=== PATIENT | female | born 1955 | race Caucasian/White ===

== ENCOUNTER → 2019-04-24 | Outpatient (CLI) | payer OTHER ==
[2019-04-24 16:26] LABS: BASOPHILS ABSOLUTE AUTO 0.04 K/mm3 (0.00-0.23); BASOPHILS PERCENT AUTO 1 % (0-2); EOSINOPHILS ABSOLUTE AUTO 0.71 K/mm3 (0.00-0.68); EOSINOPHILS PERCENT AUTO 12 % (0-6); Hematocrit 39.3 % (33.0-51.0); Hemoglobin 12.7 g/dL (11.5-16.0); IMMATURE GRAN ABSOLUTE AUTO 0.01 K/mm3 (0.00-0.10); IMMATURE GRAN PERCENT AUTO 0 % (0-1); LYMPHOCYTES ABSOLUTE AUTO 1.91 K/mm3 (0.84-5.20); LYMPHOCYTES PERCENT AUTO 31 % (21-46); MONOCYTES ABSOLUTE AUTO 0.51 K/mm3 (0.16-1.47); MONOCYTES PERCENT AUTO 8 % (4-13); Mean Corpuscular HGB 29.8 pg (26.0-34.0); Mean Corpuscular HGB Conc 32.3 g/dL (31.5-36.5); Mean Corpuscular Volume 92 fL (80-100); Mean Platelet Volume 9.4 fL (9.1-12.4); NEUTROPHILS ABSOLUTE AUTO 2.98 K/mm3 (1.96-9.15); NEUTROPHILS PERCENT AUTO 48 % (41-73); Platelet Count 249 K/mm3 (150-400); RDW Coefficient Variation 13.7 % (11.7-14.2); RDW Standard Deviation 46.4 fL (35.1-46.3); Red Blood Cell Count 4.26 M/mm3 (3.80-5.20); White Blood Cell Count 6.16 K/mm3 (4.00-11.30)
[2019-04-24 16:43] LABS: Alanine Aminotransfer (ALT/SGP 19 U/L (12-78); Albumin, Blood 3.9 g/dL (3.4-5.0); Alk Phos 85 U/L (40-126); Anion Gap 9 mmol/L (6-16); Aspartate Aminotrans (AST/SGOT 20 U/L (12-37); Bilirubin, Total 0.3 mg/dL (0.1-1.0); Blood Urea Nitrogen 22 mg/dL (8-24); Bun/Creatinine Ratio 14.6 (12.0-20.0); CO2, Blood 27 mmol/L (21-32); Calcium, Blood 8.9 mg/dL (8.5-10.1); Chloride, Blood 104 mmol/L (98-108); Creatinine, Blood 1.51 mg/dL (0.40-1.00); Globulin, Blood 3.8 g/dL (2.2-4.0); Glomerular Filtration Rate 34 (60-); Glucose, Blood 88 mg/dL (70-99); Potassium, Blood 4.2 mmol/L (3.5-5.5); Sodium, Blood 140 mmol/L (136-145); Thyroid Stimulating Hormone 1.194 uIU/mL (0.360-4.800); Total Protein, Blood 7.7 g/dL (6.4-8.2)
[2019-04-24 16:49] LABS: Troponin I <0.017 ng/mL (0.000-0.040)
== END | disposition home or self-care (01) ==
LOC: LAB SHORT 16:21 → LAB EV 16:21
PROVIDERS: Physician Assistant
DX: E03.9 Hypothyroidism, unspecified (principal); R07.89 Other chest pain
CPT/HCPCS: 80053; 84443; 84484; 85025

== ENCOUNTER → 2019-09-24 | Outpatient (CLI) | payer OTHER ==
[2019-09-24 17:01] LABS: Albumin, Blood 3.6 g/dL (3.4-5.0); Anion Gap 7 mmol/L (6-16); Blood Urea Nitrogen 19 mg/dL (8-24); Bun/Creatinine Ratio 14.6 (12.0-20.0); CO2, Blood 25 mmol/L (21-32); Calcium, Blood 9.2 mg/dL (8.5-10.1); Chloride, Blood 107 mmol/L (98-108); Glomerular Filtration Rate 44 (60-); Glucose, Blood 86 mg/dL (70-99); Phosphorus, Blood 3.6 mg/dL (2.5-4.9); Potassium, Blood 3.8 mmol/L (3.5-5.5); Sodium, Blood 139 mmol/L (136-145)
== END | disposition home or self-care (01) ==
LOC: LAB 14:06 → LAB SHORT 14:06
PROVIDERS: Internal Medicine Nephrology
DX: I12.9 Hypertensive chronic kidney disease with stage 1 through stage 4 chronic kidney disease, or unspecified chronic kidney disease (principal); N18.3 Chronic kidney disease, stage 3 (moderate)
CPT/HCPCS: 80069

== ENCOUNTER → 2019-09-26 | Outpatient (CLI) | payer OTHER | END | disposition home or self-care (01) | LOC: LAB 15:55 → LAB SHORT 15:55 | DX: N18.3 Chronic kidney disease, stage 3 (moderate) (principal); D63.1 Anemia in chronic kidney disease | CPT/HCPCS: 85018 ==

== ENCOUNTER 2019-10-25 16:16 | Emergency (ER) | payer OTHER ==
[~2019-10-25] VITALS: Ht 152.4 cm; Wt 56.7 kg
[2019-10-25 16:41] LABS: Source, Urine Clean Catch
[2019-10-25 16:45] LABS: Bilirubin, Urine Neg (Neg); Blood, Urine Neg (Neg); Glucose Qualitative, Urine Neg (Neg); Ketones, Urine Neg (Neg); Leukocyte Esterase, Urine Neg (Neg); Nitrite, Urine Neg (Neg); Protein, Urine Neg (Neg); Specific Gravity, Urine 1.005 (1.003-1.022); Urobilinogen, Urine NORM (Normal)
[2019-10-25 17:03] LABS: Appearance, Urine Clear (Clear); Color, Urine Pale Yellow (P-Yellow)
[2019-10-25 17:16] LABS: BASOPHILS ABSOLUTE AUTO 0.03 K/mm3 (0.00-0.23); BASOPHILS PERCENT AUTO 1 % (0-2); EOSINOPHILS ABSOLUTE AUTO 0.68 K/mm3 (0.00-0.68); EOSINOPHILS PERCENT AUTO 11 % (0-6); Hematocrit 39.7 % (33.0-51.0); Hemoglobin 12.8 g/dL (11.5-16.0); IMMATURE GRAN ABSOLUTE AUTO 0.02 K/mm3 (0.00-0.10); IMMATURE GRAN PERCENT AUTO 0 % (0-1); LYMPHOCYTES ABSOLUTE AUTO 1.45 K/mm3 (0.84-5.20); LYMPHOCYTES PERCENT AUTO 24 % (21-46); MONOCYTES ABSOLUTE AUTO 0.45 K/mm3 (0.16-1.47); MONOCYTES PERCENT AUTO 8 % (4-13); Mean Corpuscular HGB 29.8 pg (26.0-34.0); Mean Corpuscular HGB Conc 32.2 g/dL (31.5-36.5); Mean Corpuscular Volume 92 fL (80-100); Mean Platelet Volume 10.3 fL (9.1-12.4); NEUTROPHILS ABSOLUTE AUTO 3.37 K/mm3 (1.96-9.15); NEUTROPHILS PERCENT AUTO 56 % (41-73); Platelet Count 243 K/mm3 (150-400); RDW Coefficient Variation 13.1 % (11.7-14.2); RDW Standard Deviation 44.4 fL (35.1-46.3)
[2019-10-25 17:39] LABS: Alanine Aminotransfer (ALT/SGP 22 U/L (12-78); Albumin, Blood 3.9 g/dL (3.4-5.0); Albumin/Globulin Ratio 0.9 (0.8-1.8); Alk Phos 88 U/L (50-136); Anion Gap 5 mmol/L (6-16); Aspartate Aminotrans (AST/SGOT 19 U/L (12-37); Bilirubin, Total 0.4 mg/dL (0.1-1.0); Blood Urea Nitrogen 17 mg/dL (8-24); Bun/Creatinine Ratio 11.8 (12.0-20.0); CO2, Blood 26 mmol/L (21-32); Calcium, Blood 9.3 mg/dL (8.5-10.1); Chloride, Blood 105 mmol/L (98-108); Creatinine, Blood 1.44 mg/dL (0.40-1.00); Globulin, Blood 4.3 g/dL (2.2-4.0); Glomerular Filtration Rate 39 (60-); Glucose, Blood 93 mg/dL (70-99); Sodium, Blood 136 mmol/L (136-145); Total Protein, Blood 8.2 g/dL (6.4-8.2); Troponin I <0.015 ng/mL (0.000-0.040)
[2019-10-25] MEDS ORDERED: LEVSOD25 PO (22:13)
[2019-10-25] MEDS ORDERED: QUET25 (22:14)
[2019-10-25] MEDS ORDERED: COMBIVENT RESPIM4 G1 INH (22:14)
== END 2019-10-25 22:16 | disposition home or self-care (01) ==
LOC: ER 16:16
PROVIDERS: Physician Assistant
DX: R07.9 Chest pain, unspecified (principal); M79.7 Fibromyalgia; M81.0 Age-related osteoporosis without current pathological fracture; Z88.5 Allergy status to narcotic agent; Z88.8 Allergy status to other drugs, medicaments and biological substances; Z79.899 Other long term (current) drug therapy; Z87.891 Personal history of nicotine dependence
CPT/HCPCS: 36415; 80053; 81003; 84484; 85025; 93005; 93010; 99283-25

== ENCOUNTER → 2019-11-16 | Outpatient (CLI) | payer OTHER ==
[~2019-11-16] MED LIST: COMBIVENT RESPIM4 G1 INH; LEVSOD25 PO; QUET25
== END | disposition home or self-care (01) ==
LOC: LAB SHORT 18:05 → LAB EV 18:05
DX: J20.9 Acute bronchitis, unspecified (principal)
CPT/HCPCS: U0003

== ENCOUNTER → 2019-12-31 | Outpatient (CLI) | payer OTHER ==
[2020-01-02 14:10] LABS: HPV 16 Negative (Negative); HPV 18 Negative (Negative); HPV OTHER HR TYPES Negative (Negative)
== END | disposition home or self-care (01) ==
LOC: LAB 10:42 → LAB SHORT 10:42
PROVIDERS: Obstetrics & Gynecology
DX: Z01.419 Encounter for gynecological examination (general) (routine) without abnormal findings (principal)
CPT/HCPCS: 87624; G0123

== ENCOUNTER → 2020-04-07 | Outpatient (CLI) | payer OTHER | END | disposition home or self-care (01) | LOC: LAB SHORT 14:03 → LAB 14:03 → LAB FUT 04-02 17:30 | DX: N18.31 Chronic kidney disease, stage 3a (principal); D63.1 Anemia in chronic kidney disease; N25.81 Secondary hyperparathyroidism of renal origin; E55.9 Vitamin D deficiency, unspecified; E78.00 Pure hypercholesterolemia, unspecified; R76.9 Abnormal immunological finding in serum, unspecified; R94.5 Abnormal results of liver function studies; R94.6 Abnormal results of thyroid function studies | CPT/HCPCS: 87493 ==

== ENCOUNTER → 2020-05-29 | Outpatient (CLI) | payer OTHER ==
[~2020-05-29] MED LIST changes: +ALBU90OI INH; +CLIMARA1 EACH TOP; +DOCU100 PO; +GABA300 PO; +MELA3 PO; +PANTOPRAZOLE SO40 M2 PO; +QUETIAPINE FUMA25 MG PO; +STIOLTO RESPIMAT4 G1 INH; +TAMS.4ER PO
[2020-05-29 14:14] LABS: Bun/Creatinine Ratio 10.2 (12.0-20.0); Calcium, Blood 9.1 mg/dL (8.5-10.1); Creatinine, Blood 1.37 mg/dL (0.40-1.00)
[2020-05-29 14:22] LABS: Thyroid Stimulating Hormone 2.04 uIU/mL (0.360-4.800)
== END | disposition home or self-care (01) ==
LOC: LAB 09:50 → LAB SHORT 09:50
PROVIDERS: Nurse Practitioner Family
DX: K59.00 Constipation, unspecified (principal)
CPT/HCPCS: 80048; 84443

== ENCOUNTER 2020-08-05 19:34 | Emergency (ER) | payer OTHER ==
[~2020-08-05] VITALS: Ht 152.4 cm; Wt 54.0 kg
[~2020-08-05 19:34] MED LIST changes: -ALBU90OI INH; -CLIMARA1 EACH TOP; -DOCU100 PO; -GABA300 PO; -MELA3 PO; -PANTOPRAZOLE SO40 M2 PO; -QUETIAPINE FUMA25 MG PO; -STIOLTO RESPIMAT4 G1 INH; -TAMS.4ER PO
[2020-08-05] MEDS ORDERED: QUETIAPINE FUMA25 MG PO (19:45)
[2020-08-05] MEDS ORDERED: CLIMARA1 EACH TOP (19:46)
[2020-08-05] MEDS ORDERED: PANTOPRAZOLE SO40 M2 PO (19:46)
[2020-08-05 20:19] LABS: Source, Urine Clean Catch
[2020-08-05 20:20] LABS: BASOPHILS ABSOLUTE AUTO 0.03 K/mm3 (0.00-0.23); BASOPHILS PERCENT AUTO 1 % (0-2); EOSINOPHILS ABSOLUTE AUTO 0.82 K/mm3 (0.00-0.68); EOSINOPHILS PERCENT AUTO 12 % (0-6); Hematocrit 35.2 % (33.0-51.0); Hemoglobin 11.5 g/dL (11.5-16.0); IMMATURE GRAN ABSOLUTE AUTO 0.02 K/mm3 (0.00-0.10); IMMATURE GRAN PERCENT AUTO 0 % (0-1); LYMPHOCYTES ABSOLUTE AUTO 2.13 K/mm3 (0.84-5.20); LYMPHOCYTES PERCENT AUTO 32 % (21-46); MONOCYTES ABSOLUTE AUTO 0.46 K/mm3 (0.16-1.47); MONOCYTES PERCENT AUTO 7 % (4-13); Mean Corpuscular HGB 29.9 pg (26.0-34.0); Mean Corpuscular HGB Conc 32.7 g/dL (31.5-36.5); Mean Corpuscular Volume 91 fL (80-100); Mean Platelet Volume 10.2 fL (9.1-12.4); NEUTROPHILS ABSOLUTE AUTO 3.14 K/mm3 (1.96-9.15); NEUTROPHILS PERCENT AUTO 48 % (41-73); Platelet Count 221 K/mm3 (150-400); RDW Coefficient Variation 13.1 % (11.7-14.2); RDW Standard Deviation 43.8 fL (35.1-46.3); Red Blood Cell Count 3.85 M/mm3 (3.80-5.20)
[2020-08-05 20:23] LABS: Bilirubin, Urine Neg (Neg); Blood, Urine Neg (Neg); Glucose Qualitative, Urine Neg (Neg); Ketones, Urine Neg (Neg); Leukocyte Esterase, Urine Neg (Neg); Nitrite, Urine Neg (Neg); Protein, Urine Neg (Neg); Urobilinogen, Urine NORM (Normal)
[2020-08-05 20:30] LABS: Appearance, Urine Clear (Clear); Color, Urine Yellow (P-Yellow)
[2020-08-05 20:42] LABS: Albumin, Blood 3.6 g/dL (3.4-5.0); Albumin/Globulin Ratio 0.9 (0.8-1.8); Bilirubin, Total 0.3 mg/dL (0.1-1.0); Bun/Creatinine Ratio 11.6 (12.0-20.0); Calcium, Blood 9.3 mg/dL (8.5-10.1); Creatinine, Blood 1.29 mg/dL (0.40-1.00); Globulin, Blood 3.9 g/dL (2.2-4.0); Potassium, Blood 3.6 mmol/L (3.5-5.5); Total Protein, Blood 7.5 g/dL (6.4-8.2)
[2020-08-05 20:46] LABS: Thyroid Stimulating Hormone 0.942 uIU/mL (0.360-4.800)
[2020-08-31] MEDS ORDERED: STIOLTO RESPIMAT4 G1 INH (11:25)
[2020-08-31] MEDS ORDERED: MELA3 PO (11:26)
[2020-09-01] MEDS ORDERED: ALBU90OI INH (08:58)
[2020-09-06] MEDS ORDERED: TAMS.4ER PO (15:47)
[2020-09-06] MEDS ORDERED: DOCU100 PO (15:47)
[2020-09-06] MEDS ORDERED: GABA300 PO (15:48)
== END 2020-08-05 22:57 | disposition home or self-care (01) ==
LOC: ER 19:34
PROVIDERS: Physician Assistant
DX: R41.82 Altered mental status, unspecified (principal); Z79.899 Other long term (current) drug therapy; Z88.8 Allergy status to other drugs, medicaments and biological substances
CPT/HCPCS: 36415; 74177; 80053; 81003; 83690; 84443; 85025; 99285-25; Q9967

== ENCOUNTER 2020-09-01 08:26 | Day surgery (SDC) | payer OTHER ==
[~2020-09-01] VITALS: Ht 152.4 cm; Wt 53.5 kg
[~2020-09-01 08:26] MED LIST changes: +CLIMARA1 EACH TOP; +MELA3 PO; +PANTOPRAZOLE SO40 M2 PO; +QUETIAPINE FUMA25 MG PO; +STIOLTO RESPIMAT4 G1 INH
--- NOTE | 2020-09-01 08:54 | NUR ---
History, Chart, Medications and Allergies reviewed before start of procedure. Patient confirms NPO status and agrees with scheduled surgery. Reports taking all of her colon prep with clear, yellow output. States she has saw lots of sediment in her last BM. Patient States Post-Procedure ride home has been arranged with her caregiver, Agustina Velasco.
[2020-09-01] MEDS ORDERED: ALBU90OI INH ×2 (08:58)
--- NOTE | 2020-09-01 09:13 | NUR ---
09/01/20 0913 Ambrose Finney History, Chart, Medications and Allergies reviewed before start of procedure.MONITOR INTACT WITH CONTINUOUS PULSE OXIMETRY AND INTERMITTENT BP.3-LEAD EKG REVIEWED WITH PHYSICIAN PRIOR TO START OF PROCEDURE.O2 VIA N/C INTACT THROUGHOUT SEDATION/PROCEDURE. See Anesthesia record
--- NOTE | 2020-09-01 10:37 | NUR ---
PATIENT STATED SHE WAS UNABLE TO URINATE ON A BED COHEN. TWO STAFF ASSIST TO A BEDSIDE COMMODE, PATIENT BECAME MORE TREMULOUS IN WHOLE BODY WHILE UP ON BEDSIDE COMMODE. STATES SHE STILL HAS TO URINATE AFTER VOIDING 100 MLS. WILL BLADDER SCAN. PUT HER BACK TO BED. PATIENT ABLE TO BARE WEIGHT. BRIEF IN PLACE.
--- NOTE | 2020-09-01 10:46 | NUR ---
USED BLADDER SCANNER DUE TO COMPLAINTS OF FEELING OF FULL BLADDER. 334 MLS OF URINE ON BLADDER SCAN READ. PATIENT HAS CHRONIC PAIN ISSUES, NO MEDICATIONS USED FOR CHRONIC PAIN.
--- NOTE | 2020-09-01 12:10 | NUR ---
AMBULATED PATIENT IN UNIT WITH CANE, TWO STAFF ASSIST, PATIENT BECAME WEAK SO WE PUT HER IN A W/C. SPOKE TO DR. DOSHI ABOUT PATIENT'S INABILITY TO SAFELY GO HOME DUE TO TREMORS AND WEAKNESS. PATIENT NOT BACK TO BASELINE PER RIDE HOME. ASK FOR EXTENDED RECOVERY ON SURGICLE FLOOR, DR. DOSHI SAID HE WOULD REASSESS AFTER FINISHING NEXT PATIENT'S SCOPE. PATIENT UP ON BEDSIDE COMMODE. PROVIDED FOOD AND FLUID.
--- NOTE | 2020-09-01 15:00 | NUR ---
1230 assumed care of patient. assist up to ambulate with walker and assess leg strength and stability. pt legs occasionally buckeling under her while attemptinmg ambulation. 1300 ambulte patient with walker assist continues with leg weekness and buckeling much discussion on plan for patient as she lives alone and unsafe to send home alone. [address] Mac report given to hime of patient condition. Dr Mac states he doesnt feel admitting patient is appropriate. I stated I can't discharge her home as she can't walk even with walker without legs buckeling under her and me needing to grab her. Dr Mac stated "take patient to the ER for evaluation". After much discussion with patient, Patient agreed to go to ER. Patient has friend/ courier delivery driver with her. 1330 Assisted patient to BR with walker. no change in unsteady buckeling legs 1345 Patient taken to ER via wheel chair with Carol -friend at her side. I assisted patient in getting checked into ER
--- NOTE | 2020-09-01 16:01 | NUR ---
MARITZA TAKING CARE OF BRANDT DALEY T/O RECOVERY PHASE OF SCOPE. PT WAS VERY TREMULOUS, WEAK AND FELT LIKE SHE NEEDED TO VOID. PT SHOWING CPMPULISIVE BEHAVIOR AND COULD NOT BE LEFT ALONE. STAYED AT BEDSIDE. PT GOTTEN UP TO BSC WITH TWO STAFF ASSIST. PT UNABLE TO VOID EXCEPT 100CC CLEAR YELLOW URINE. PT CONTINUED TO BE INSISTENT THAT SHE HAD TO VOID. DID BLADDER SCANNER THAT SHOWED 334 ML OF URINE RETAINED IN BLADDER. GOT PATIENT UP TO WALK TO ASSESS STABILITY ON FEET AFTER 1.5 HOURS OF RECOVERY AND TREMORS HAD REDUCED. PT NORMALLY INDEPENDENT AT HOME WITH USING A CANE. JULIO, STEWARDESSES TEACHER VOICED HER CONCERNS ABOUT PT NOT BEING AT BASELINE MENTALLY OR PHYSICALLY. SPOKE TO DR DOSHI ABOUT CONCERNS. NO NEW ORDERS AT THIS TIME. DR DOSHI AND DR MATHEW ASSESSED PT AND DID NOT FEEL SHE NEEDED EXTENDED RECOVERY. ATTEMPTED AMBULATION AT 2 HOUS IN RECOVERY AND PT WAS STILL LOSING HER BALANCE AND WAS VERY WEAK. SPOKE TO DR DOSHI REGARDING CONCERNS. NO NEW ORDERS. PT CONTINUED TO BE UNSTABLE AND WAS TAKEN TO ER AND ADMITTED TO HOSPITAL.
== END 2020-09-01 23:20 | disposition home or self-care (01) ==
LOC: ORSCMMR 08:26 → ORD 09:15 → ORSCMMR 09:15
PROVIDERS: Internal Medicine Gastroenterology
PROC: 0DBN8ZX Excision of Sigmoid Colon, Via Natural or Artificial Opening Endoscopic, Diagnostic (ICD-10-PCS; principal; 2020-09-01 09:15)
PROC: 0DBM8ZX Excision of Descending Colon, Via Natural or Artificial Opening Endoscopic, Diagnostic (ICD-10-PCS; principal; 2020-09-01 09:15)
PROC: 0DBP8ZX Excision of Rectum, Via Natural or Artificial Opening Endoscopic, Diagnostic (ICD-10-PCS; principal; 2020-09-01 09:15)
DX: R10.84 Generalized abdominal pain (principal); K62.1 Rectal polyp; K63.5 Polyp of colon; K63.89 Other specified diseases of intestine; K57.30 Diverticulosis of large intestine without perforation or abscess without bleeding; K64.8 Other hemorrhoids; Z80.0 Family history of malignant neoplasm of digestive organs; C85.90 Non-Hodgkin lymphoma, unspecified, unspecified site; G47.33 Obstructive sleep apnea (adult) (pediatric); Z79.899 Other long term (current) drug therapy
CPT/HCPCS: 88305; J2704; J7120

== ENCOUNTER 2020-09-01 14:00 | Observation (INO) | payer OTHER ==
[~2020-09-01] VITALS: Ht 152.4 cm; Wt 53.0 kg
[~2020-09-01 14:00] MED LIST changes: +ALBU90OI INH
[2020-09-01 15:04] LABS: BASOPHILS ABSOLUTE AUTO 0.03 K/mm3 (0.00-0.23); BASOPHILS PERCENT AUTO 0 % (0-2); EOSINOPHILS ABSOLUTE AUTO 0.63 K/mm3 (0.00-0.68); EOSINOPHILS PERCENT AUTO 9 % (0-6); Hematocrit 35.3 % (33.0-51.0); Hemoglobin 11.6 g/dL (11.5-16.0); IMMATURE GRAN ABSOLUTE AUTO 0.01 K/mm3 (0.00-0.10); IMMATURE GRAN PERCENT AUTO 0 % (0-1); LYMPHOCYTES ABSOLUTE AUTO 1.32 K/mm3 (0.84-5.20); LYMPHOCYTES PERCENT AUTO 20 % (21-46); MONOCYTES PERCENT AUTO 7 % (4-13); Mean Corpuscular HGB 29.9 pg (26.0-34.0); Mean Corpuscular HGB Conc 32.9 g/dL (31.5-36.5); Mean Corpuscular Volume 91 fL (80-100); Mean Platelet Volume 9.8 fL (9.1-12.4); NEUTROPHILS ABSOLUTE AUTO 4.28 K/mm3 (1.96-9.15); NEUTROPHILS PERCENT AUTO 63 % (41-73); Platelet Count 222 K/mm3 (150-400); RDW Coefficient Variation 13.1 % (11.7-14.2); Red Blood Cell Count 3.88 M/mm3 (3.80-5.20); White Blood Cell Count 6.77 K/mm3 (4.00-11.30)
[2020-09-01 15:25] LABS: Albumin, Blood 3.6 g/dL (3.4-5.0); Albumin/Globulin Ratio 0.9 (0.8-1.8); Bilirubin, Total 0.4 mg/dL (0.1-1.0); Bun/Creatinine Ratio 7.1 (12.0-20.0); Creatinine, Blood 1.26 mg/dL (0.40-1.00); Globulin, Blood 3.9 g/dL (2.2-4.0); Potassium, Blood 3.7 mmol/L (3.5-5.5); Total Protein, Blood 7.5 g/dL (6.4-8.2)
[2020-09-01 15:33] LABS: Source, Urine Clean Catch
[2020-09-01 16:04] LABS: Appearance, Urine Clear (Clear); Bilirubin, Urine Neg (Neg); Blood, Urine Neg (Neg); Glucose Qualitative, Urine Neg (Neg); Ketones, Urine Neg (Neg); Leukocyte Esterase, Urine 1+ (Neg); Nitrite, Urine Neg (Neg); Protein, Urine Neg (Neg); Urobilinogen, Urine NORM (Normal)
[2020-09-01 16:40] LABS: Color, Urine Pale Yellow (P-Yellow)
[2020-09-01 16:41] LABS: Bacteria Rare /hpf; Red Blood Cells, Urine 0-2 /hpf (0-2); Squamous Epithelial Cells Rare /hpf (Few); White Blood Cells, Urine 0-2 /hpf (0-5)
[2020-09-01 23:00] LABS: Thyroid Stimulating Hormone 1.58 uIU/mL (0.360-4.800)
[2020-09-02 05:22] LABS: BASOPHILS ABSOLUTE AUTO 0.04 K/mm3 (0.00-0.23); BASOPHILS PERCENT AUTO 1 % (0-2); EOSINOPHILS ABSOLUTE AUTO 0.64 K/mm3 (0.00-0.68); EOSINOPHILS PERCENT AUTO 12 % (0-6); Hematocrit 31.3 % (33.0-51.0); Hemoglobin 10.1 g/dL (11.5-16.0); IMMATURE GRAN ABSOLUTE AUTO 0.02 K/mm3 (0.00-0.10); IMMATURE GRAN PERCENT AUTO 0 % (0-1); LYMPHOCYTES ABSOLUTE AUTO 1.53 K/mm3 (0.84-5.20); LYMPHOCYTES PERCENT AUTO 29 % (21-46); MONOCYTES ABSOLUTE AUTO 0.49 K/mm3 (0.16-1.47); MONOCYTES PERCENT AUTO 9 % (4-13); Mean Corpuscular HGB 29.6 pg (26.0-34.0); Mean Corpuscular HGB Conc 32.3 g/dL (31.5-36.5); Mean Corpuscular Volume 92 fL (80-100); Mean Platelet Volume 9.9 fL (9.1-12.4); NEUTROPHILS ABSOLUTE AUTO 2.62 K/mm3 (1.96-9.15); NEUTROPHILS PERCENT AUTO 49 % (41-73); Platelet Count 196 K/mm3 (150-400); RDW Standard Deviation 43.3 fL (35.1-46.3); Red Blood Cell Count 3.41 M/mm3 (3.80-5.20); White Blood Cell Count 5.34 K/mm3 (4.00-11.30)
[2020-09-02 06:02] LABS: Bun/Creatinine Ratio 5.7 (12.0-20.0); Calcium, Blood 8.5 mg/dL (8.5-10.1); Creatinine, Blood 1.41 mg/dL (0.40-1.00); Potassium, Blood 3.4 mmol/L (3.5-5.5)
--- NOTE | 2020-09-02 06:44 | NUR ---
SHIFT SUMMARY NEW ER ADMIT THIS SHIFT (0030) AMBULATED 1 ASSIST FROM GURNEY TO BED, VISIBLE TREMORS INTERMITTENTLY (NO TREMORS THIS AM), SLEPT T/O THE NIGHT, MEDICATED 1X FOR SORE THROAT, NO OTHER C/O ANY KIND, BEDRESTING AT THIS TIME, CALL LIGHT IN REACH, WILL CONT TO MONITOR UNTIL REPORT GIVEN TO DAY RN.
--- NOTE | 2020-09-02 17:25 | NUR ---
SHIFT SUMMARY PT WITH DIFFERENT DEPTS OF STAFF WORKING WITH PT THIS MORNING. WENT FOR MRI LATE MORNING. 1 PERSON ASSIST USING FWW WITH P.T. TODAY. LE STRENGTH EQUAL. CAREGIVER/FRIEND AT BEDSIDE THIS EVENING FOR A VISIT. PT ABLE TO EXPRESS HERSELF AND NEEDS CLEARLY. STATES BELTRAN IS UNCOMFORTABLE. STATES OCC SPASMS. WILL REPORT CONDITION TO ONCOMING SHIFT.
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
--- NOTE | 2020-09-03 01:08 | NUR ---
LATE ENTRY FOR 09/02 AT 2130. CALL PLACED TO HOSPITALIST, TRINITY NEUMANN DUE TO BP 90/61. PT ASYMPTOMATIC. CURRENTLY RECEIVING LR AT 75/HR. NO NEW ORDERS AT THIS TIME.
--- NOTE | 2020-09-03 04:02 | NUR ---
SHIFT SUMMARY: AAOX3. 02 97% ON RA. RESPS REG, NON-LABORED. FICTION AND NONFICTION AUTHOR/PUSHES/PULLS ALL EQUAL BILATERALLY. PT REMAINED IN BED TONIGHT. DENIES N/T. F/C PATENT AND DRAINING CLEAR STRAW COLORED URINE. MAINTENANCE FLUIDS INFUSING CONTINUOUSLY. NO ACUTE CHANGES OVERNIGHT. WCTM.
[2020-09-03 05:12] LABS: Bun/Creatinine Ratio 8.7 (12.0-20.0); Calcium, Blood 8.2 mg/dL (8.5-10.1); Creatinine, Blood 1.5 mg/dL (0.40-1.00); Potassium, Blood 3.9 mmol/L (3.5-5.5)
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
--- NOTE | 2020-09-03 18:27 | NUR ---
SHIFT SUMMARY PT UP TO BATHROOM WITH 1 PERSON ASSIST USING A FWW. DOES HAVE URINARY URGENCY AND NEEDS TO GO FREQUENTLY. POST VOID RESIDUALS DONE TWICE WITH LESS THAN 110 EACH TIME. WALKED IN HALLWAY WITH FWW WITH P.T. TO ACC DESK AND BACK. NO RESP DISTRESS NOTED. UP IN CHAIR FOR LUNCH AND DINNER. POSSIBLE DISCHARGE TO SNF. FRIEND JULIO IN TO VISIT PT THIS AFTERNOON.
--- NOTE | 2020-09-04 03:28 | NUR ---
SHIFT SUMMARY: VSS. AFEB. 02 99% ON RA. PT WEARING 02 2L VIA NC AT HS. UP W/ FWW AND SBA. GAIT WELL-PACED AND STEADY. NO MUSCLE TREMORING OBSERVED. VOIDING WELL BOTH CONTINENT AND INCONTINENT. MED X 1 FOR GENERAL PAIN. PT APPEARS TO HAVE SLEPT WELL FOR MUCH OF THE NIGHT. NO ACUTE CONCERNS AT THIS TIME.
[2020-09-04 11:04] LABS: Influenza A, PCR NEGATIVE (NEGATIVE); Influenza B, PCR NEGATIVE (NEGATIVE); Resp Syncytial Virus, PCR NEGATIVE (NEGATIVE); SARS-Cov-2 (COVID-19) PCR, MMC NEGATIVE (NEGATIVE)
--- NOTE | 2020-09-04 16:16 | NUR ---
REASSESSED SI WITH PRESENT AND IT WAS FOUND THAT THE PATIENT WAS MODERATE SI RATHER THAN HIGH. WHEN THIS RN FIRST ASSESSED PATIENT SHE WOULD NOT ANSWER QUESTIONS BECAUSE SHE "DID NOT WANT TO GET LOCKED UP." AFTER BECOMING MORE TRUSTFUL SHE WAS ABLE TO ANSWER QUESTIONS MORE HONESTLY.
[2020-09-04 16:27] LABS: Source, Urine Voided
[2020-09-04 16:40] LABS: Bilirubin, Urine Neg (Neg); Blood, Urine 5+ (Neg); Glucose Qualitative, Urine Neg (Neg); Ketones, Urine Neg (Neg); Leukocyte Esterase, Urine 3+ (Neg); Nitrite, Urine Neg (Neg); Protein, Urine Neg (Neg); Urobilinogen, Urine NORM (Normal); pH, Urine 6.5 (5.0-8.0)
[2020-09-04 16:48] LABS: Appearance, Urine Hazy (Clear); Color, Urine Pale Yellow (P-Yellow)
[2020-09-04 16:49] LABS: White Blood Cells, Urine 50-100 /hpf (0-5)
[2020-09-04 16:50] LABS: Bacteria Mod /hpf; Squamous Epithelial Cells Few /hpf (Few)
--- NOTE | 2020-09-04 18:09 | NUR ---
PT ARRIVED TO ROOM 349 FROM ROOM 355 VIA AMBULATION WITH FWW , REPORT TAKEN FROM RADHAMES BRENNAN, THE PT APPEARS TO BE BREATHING EASILY AT THIS TIME ON RA, PT IS VERY ANXIOUS AND CONCERNED ABOUT HER NEW ROOM , REASURANCE WAS GIVEN TO THE PT, THE PT REPORTED THAT SHE DIDNT MEAN TO CAUSE ANY TROUBLE THE PT WAS REASURED THAT SHE WAS NOT CAUSING TROUBLE, PT UPSET WITH THE SI PRECAUTIONS, STATED THAT HER PLAN IF SHE DID HURT HERSELF WOULD BE TAKING SOME PILLS/MEDICATION, PT WAS ORIENTED TO THE CALL SYSTEM, OVERHEAD CAMERA MONITORING IS IN PLACE, WILL CONTINUE TO MONITOR FOR CHANGES
--- NOTE | 2020-09-04 19:16 | NUR ---
SHIFT SUMMARY PT HAD A LOT OF DIFFICULTY THIS SHIFT. SHE EXPERIENCED A LOT OF PAIN AND FULLNESS IN HER BLADDER, BUT VOIDED OFTEN. BLADDER SCANNED OFTEN FOR RESIDUAL AND FOUND THE PATIENT WAS NOT RETAINING MUCH URINE. SHE ALSO BECAME VERY EMOTIONAL AND ANXIOUS THIS SHIFT. PRIOR TO POSSIBLY DISCHARGING HOME WITH HOME HEALTH THE PATIENT BROKE DOWN CRYING, EXPRESSING THAT MENTALLY AND PHYSICALLY SOMETHING WAS "WRONG". SHE ALSO BEGAN TO EXPRESS SUICIDAL THOUGHTS AT THIS TIME. DUE TO THIS BEHAVIOR, THE DIRECTOR OF SALES AND MARKETING AND NEXT OF KIN (JULIO) DECIDED THAT SHE WOULD NOT BE SAFE TO GO HOME. WHEN I TRIED TO COMPLETE THE SUICIDE ASSESSMENT THE PATIENT WAS VERY RELUCTANT TO ANSWER QUESTIONS BECAUSE SHE WAS AFRAID SHE WOULD BE "LOCKED UP". PATIENT FINALLY WAS ABLE TO FEEL SAFE ENOUGH TO ANSWER QUESTIONS FOR THE PHYSICIAN AND I AND WAS PLACED ON MODERATE SI. SHE WAS MOVED TO A ROOM WITH VIDEO MONITORING. REPORT GIVEN TO KENNETH DIAZ RN.
[2020-09-04 22:39] LABS: Source, Urine Voided
[2020-09-04 22:41] LABS: Bilirubin, Urine Neg (Neg); Blood, Urine 5+ (Neg); Glucose Qualitative, Urine Neg (Neg); Ketones, Urine Neg (Neg); Leukocyte Esterase, Urine 3+ (Neg); Nitrite, Urine Neg (Neg); Protein, Urine Neg (Neg); Specific Gravity, Urine 1.005 (1.003-1.022); Urobilinogen, Urine NORM (Normal)
--- NOTE | 2020-09-04 22:41 | NUR ---
PT STATES SHE HAS BAD BONE PAIN AND NERVE PAIN. RN OFFERED PT HEATING PAD TO WHICH SHE REFUSED. RN OFFERED TO CALL HOSPITALIST FOR SOMETHING MEDICATION TO HELP WITH PAIN AND PT STATED "I'VE TRIED THEM ALL". HOSPITALIST DR. PIZARRO MADE AWARE, TYLENOL #3 ORDERED WELL GABAPENTIN. PT IS UNHAPPY AND STATES MULTIPLE TIMES SHE WANTS TO "GET OUT OF HERE" AND "I'LL TAKE A TAXI IF I HAVE TO" PT TOLD RN SHE DOES NOT BLAME STAFF AND KNOWS THIS IS PROCEDURE. PT IS A/O X4. RN CAN HEAR PT HAS BEEN HAVING FULL BLOWN CONVERATION WITH SELF SINCE BEGINNING OF SHIFT. CURRENTLY ON 2L 02 VIA NC, WHICH PT WEARS AT NIGHT AT BASELINE.
[2020-09-04 22:46] LABS: Appearance, Urine Clear (Clear); Color, Urine Yellow (P-Yellow)
[2020-09-04 22:52] LABS: Red Blood Cells, Urine 0-2 /hpf (0-2); Squamous Epithelial Cells Few /hpf (Few); White Blood Cells, Urine 50-100 /hpf (0-5)
[2020-09-04 22:53] LABS: Bacteria Mod /hpf; Transitional Epithelial Cells Few /hpf (0-Rare)
--- NOTE | 2020-09-05 04:50 | NUR ---
WORKER'S COMPENSATION CLAIMS EXAMINER SUMMARY PT A/O X4 WITH FORGETFULNESS. PT HAS CHRONIC PAIN AND HX OF FIBROMYAGIA. MEDICATED PT WITH TYLENOL #3 WHICH MADE PT ITCHY ALL OVER. BENADRYL GIVEN AND PT DID NOT COMPLAIN OF ANYMORE ITCHINESS. RN ASKED WHAT PT TAKES AT HOME FOR PAIN, PT STATES SHE ONLY TAKES TYLENOL WHICH DOES NOT WORK FOR HER. PT STATES "I SUFFER THROUGH IT" PT ALSO STATES SHE HAS REACTION TO MOST PAIN MEDS. PT REFUSED TO USE HEATING PAD. PT HAD FREQUENT URINATION THROUGHOUT THE NIGHT GETTING UP TO USE THE BSC EVERY 20MIN. URINE CULTURE COLLECTED AND IS PENDING. PT ALSO COMPLAINS OF CONSTIPATION. THIS RN OFFERED MILK OF MAG TO WHICH PT REFUSED TO TAKE AND SAID " I HAD A BAD REACTION TO IT", HOWEVER PT CANNOT RECALL WHAT TYPE OF REACTION IT WAS. STOOL SOFTENERS GIVEN. PT ALSO REFUSED PRUNE JUICE SAYING IT DOES NOT WORK FOR HER. PT DENIES ANY SUICIDAL THOUGHTS. PT HAS NOT BEEN VERY HAPPY, IS ANXIOUS AND WANTS TO LEAVE THE HOSPITAL. THIS RN LISTENED TO PT'S CONCERNS. PT WEARS 2L O2 BASELINE AT NIGHT TIME SATTING IN THE HIGH 90'S. NO SOB NOTED. VSS. WILL CONTINUE TO MONITOR.
--- NOTE | 2020-09-05 07:48 | NUR ---
REMOTE MONITORS CONFIRMED THIS RN CONFIRMED THAT PT IS ON REMOTE MONITORING WITH GATO PARKS, MILL OPERATOR HELPER.
--- NOTE | 2020-09-05 09:12 | NUR ---
UPDATE PT TEARFUL THIS AM WHEN TALKING TO HER FRIEND JULIO, ON THE PHONE. PT ASKING FOR JULIO TO TAKE HER HOME. THIS RN SPOKE WITH JULIO SEPARATELY ABOUT THE PT. AT THIS TIME, JULIO VOCALIZED CONCERN FOR THE PTS SAFETY AT HOME AND THAT SHE LIVE ALONE WITH LITTLE SUPPORT. JULIO STATED SHE AGREES WITH WHATEVER & PSYCHIATRY RECOMMEDS. PT VERY RELUCTANT TO TAKE MEDICATIONS. PT STATES SHE IS "SENSITIVE TO MEDS" PT C/O ITCHYNESS TO HER BACK & STATES THERE IS A RASH ON HER BACK. THIS RN ASSESSED THE SKIN, THERE IS NO RASH/REDNESS. PT REFUSED LOTION & REFUSED BENEDRYL, STATING THE MED SWELLS HER SINUSES. PT CONSISTANTLY TAKES TO HERSELF IN ROOM. EASILY IRRITATED. APPEARS RELUCTANT TO ANY SOLUTIONS TO THE PROBLEMS SHE VOCALIZES.
--- NOTE | 2020-09-05 18:18 | NUR ---
SHIFT SUMMARY PT CONTINUED ON MOD SI PRECAUTIONS. INTERMITTENLY TEARFUL AT TIMES T/O DAY. IND IN ROOM. AWAITING TELEPSYCH CONSULT. PT VOCALIZED THAT SHE THINKS SHE HAS A VAGINAL YEAST INFECTION, STATING "IT IS ITCHY DOWN THERE" AND REPORTING SOME DISCHARGE. DR. GARRISON NOTIFIED OF THIS EARLIER IN THE SHIFT, DIFLUCAN & PROBIOTICS STARTED. PT ENCOURAGED TO EAT SOME YOGURT WELL. NO OTHER ACUTE CHANGES IN ASSESSMENT AT THIS TIME. VS REVIEWED. PT MEDICATED FOR PAIN ONCE THIS SHIFT. CURRENTLY UP IN CHAIR, EATING DINNER.
--- NOTE | 2020-09-05 21:25 | NUR ---
PT REQUESTED TO TAKE SLEEPING MEDS LATER TONIGHT. PT EXPRESSED TO THIS RN SHE FEELS "DEPRESSED" STUCK IN THE ROOM AT THE TIME AND THE ENVIORNMENT IS MAKING HER ANXIOUS. THIS RN OFFERED THERAPUTIC LISTENING. PT AMBULATED WITH RETICLE PRINTER IN THE HALLWAY WITH FWW. GAIT IS STEADY. PT MOOD APPEARS TO BE BETTER AFTER THIS. WARM BLANKET PROVIDED, O2 IN PLACE. WILL CONTINUE TO MONITOR.
--- NOTE | 2020-09-06 06:04 | NUR ---
LENS GRINDER APPRENTICE SUMMARY PT A/O X4, SLEPT WELL MOST OF THE NIGHT. INDEPENDENT TO BSC. PT HAS CHRONIC PAIN, DENIED PAIN MEDS TONIGHT. RT INCREASED O2 FROM 2L TO 4L VIA NC OVERNIGHT PT WAS SATTING IN THE HIGH 80'S. PT CURRENTLY MAINTAINING GOOD SATS, NO SOB. PT HAS BEEN MAINTAINING STEADY BALANCED GAIT. NO ACUTE CHANGES.
--- NOTE | 2020-09-06 07:30 | NUR ---
REMOTE MONITOR CONFIRMATION THIS RN CONFIRMED WITH REMOTE MONITORING, KIKE WEINBERG THAT PT IS VISIBLE IN ROOM.
--- NOTE | 2020-09-06 12:34 | NUR ---
TELE PSYCH IN PROGRESS
[2020-09-06] MEDS ORDERED: TAMS.4ER PO ×2 (15:47)
[2020-09-06] MEDS ORDERED: DOCU100 PO ×2 (15:47)
[2020-09-06] MEDS ORDERED: GABA300 PO ×2 (15:48)
--- NOTE | 2020-09-06 17:38 | NUR ---
DISCHARGE PT DISCHARGED AT 1726. PT HAD APPOINTMENT WITH TELE PSYCH TODAY. AFTER REPORT, DR. GARRISON WAS ABLE TO DC PT WITH A RECOMMENDATION TO FOLLOW UP WITH A BOARD CERTIFIED PSYCHIATRIST. NEW MEDS FAXED TO [facility]. PT & HER FRIEND JULIO EDUCATED ON NEW MEDS & FOLLOW UP APPOINTMENTS NEEDED. HOME HEALTH TO FOLLOW UP WITH PT SOMETIME THIS WEEK. SAFETY PLAN COMPLETED WITH PT BY THIS RN. VS REVIEWED WITH DR. GARRISON PRIOR TO DC. PT & JULIO DENIED FURTHER QUESTIONS AT THE TIME OF DC. PT WHEELED OUT IN WHEELCHAIR BY AIDE & DRIVEN HOME BY FRIEND.
== END 2020-09-06 17:26 | disposition home or self-care (01) ==
LOC: ER 14:00 → MEDS 14:01 → EDPENDDIS 09-04 13:51 → ENPENDDIS 09-04 13:51 → MEDS 09-04 17:37
PROVIDERS: Family Medicine; Hospitalist; Nurse Practitioner Acute Care; Physician Assistant; ADMIT Family Medicine
DX: R53.1 Weakness (principal); N99.89 Other postprocedural complications and disorders of genitourinary system; R33.8 Other retention of urine; G47.33 Obstructive sleep apnea (adult) (pediatric); N18.30 Chronic kidney disease, stage 3 unspecified; E03.9 Hypothyroidism, unspecified; M19.90 Unspecified osteoarthritis, unspecified site; M81.0 Age-related osteoporosis without current pathological fracture; R45.851 Suicidal ideations; K57.30 Diverticulosis of large intestine without perforation or abscess without bleeding; F06.30 Mood disorder due to known physiological condition, unspecified; F45.42 Pain disorder with related psychological factors; Z87.891 Personal history of nicotine dependence; Z85.72 Personal history of non-Hodgkin lymphomas; Z87.820 Personal history of traumatic brain injury; Z88.5 Allergy status to narcotic agent; Z88.8 Allergy status to other drugs, medicaments and biological substances; Z20.822 Contact with and (suspected) exposure to COVID-19; Z91.5 Personal history of self-harm; Y83.8 Other surgical procedures as the cause of abnormal reaction of the patient, or of later complication, without mention of misadventure at the time of the procedure
CPT/HCPCS: 0241U; 36415; 51798; 70450; 70551; 72146; 72148; 72195; 80048; 80053; 81001; 82607; 82746; 84443; 85025; 87077; 87086; 87186; 92523; 93005; 93010; 94640; 94760; 96374; 97110; 97116; 97129; 97162; 97166; 97530; 99285-25; A9270; A9270-GY; J1200; J1644; J7120

== ENCOUNTER → 2020-09-25 | Outpatient (CLI) | payer OTHER ==
[~2020-09-25] MED LIST changes: +DOCU100 PO; +GABA300 PO; +TAMS.4ER PO
[2020-09-25 19:04] LABS: BASOPHILS ABSOLUTE AUTO 0.04 K/mm3 (0.00-0.23); BASOPHILS PERCENT AUTO 1 % (0-2); EOSINOPHILS ABSOLUTE AUTO 0.76 K/mm3 (0.00-0.68); EOSINOPHILS PERCENT AUTO 15 % (0-6); Hematocrit 33.9 % (33.0-51.0); Hemoglobin 10.8 g/dL (11.5-16.0); IMMATURE GRAN ABSOLUTE AUTO 0.01 K/mm3 (0.00-0.10); IMMATURE GRAN PERCENT AUTO 0 % (0-1); LYMPHOCYTES PERCENT AUTO 24 % (21-46); MONOCYTES PERCENT AUTO 8 % (4-13); Mean Corpuscular HGB 30.2 pg (26.0-34.0); Mean Corpuscular HGB Conc 31.9 g/dL (31.5-36.5); Mean Corpuscular Volume 95 fL (80-100); Mean Platelet Volume 10.1 fL (9.1-12.4); NEUTROPHILS ABSOLUTE AUTO 2.68 K/mm3 (1.96-9.15); NEUTROPHILS PERCENT AUTO 53 % (41-73); Platelet Count 247 K/mm3 (150-400); RDW Coefficient Variation 13.5 % (11.7-14.2); RDW Standard Deviation 47.3 fL (35.1-46.3); Red Blood Cell Count 3.58 M/mm3 (3.80-5.20); White Blood Cell Count 5.09 K/mm3 (4.00-11.30)
[2020-09-25 20:39] LABS: Bun/Creatinine Ratio 15.9 (12.0-20.0); Calcium, Blood 9.1 mg/dL (8.5-10.1); Creatinine, Blood 1.38 mg/dL (0.40-1.00); Potassium, Blood 4.2 mmol/L (3.5-5.5)
== END | disposition home or self-care (01) ==
LOC: PLD 17:30 → LAB SHORT 17:30
PROVIDERS: Nurse Practitioner Family
DX: N18.30 Chronic kidney disease, stage 3 unspecified (principal)
CPT/HCPCS: 80048; 81001; 81003; 85025

== ENCOUNTER → 2021-02-05 | Outpatient (CLI) | payer OTHER ==
[2021-02-05 14:28] LABS: Albumin, Blood 3.8 g/dL (3.4-5.0); Albumin/Globulin Ratio 1.2 (0.8-1.8); Bilirubin, Total 0.3 mg/dL (0.1-1.0); Bun/Creatinine Ratio 12.7 (12.0-20.0); Calcium, Blood 8.9 mg/dL (8.5-10.1); Creatinine, Blood 1.34 mg/dL (0.40-1.00); Globulin, Blood 3.2 g/dL (2.2-4.0); Potassium, Blood 4.1 mmol/L (3.5-5.5)
[2021-02-05 15:25] LABS: CHOL/HDL RATIO 3.7; Cholesterol 244 mg/dL (50-200); HDL Cholesterol 66 mg/dL (>39); LDL/HDL RATIO 2.3; Low Density Lipoprotein Chol 153 mg/dL (0-110); Triglycerides 126 mg/dL (30-160); Very Low Density Lipoprot Chol 25 mg/dL (6-32)
== END | disposition home or self-care (01) ==
LOC: LAB SHORT 12:12
PROVIDERS: Nurse Practitioner Family
DX: Z13.0 Encounter for screening for diseases of the blood and blood-forming organs and certain disorders involving the immune mechanism (principal); N18.30 Chronic kidney disease, stage 3 unspecified; E78.5 Hyperlipidemia, unspecified; M25.50 Pain in unspecified joint
CPT/HCPCS: 80053; 80061; 86038; 86431

== ENCOUNTER → 2022-10-10 | Outpatient (CLI) | payer OTHER | END | disposition home or self-care (01) | LOC: LAB SHORT 09:22 → LAB 09:22 | DX: R35.0 Frequency of micturition (principal) | CPT/HCPCS: 87086 ==

== ENCOUNTER → 2024-08-12 | Outpatient (CLI) | payer OTHER ==
[2024-08-12 19:30] LABS: BASOPHILS ABSOLUTE AUTO 0.04 K/mm3 (0.00-0.23); BASOPHILS PERCENT AUTO 1 % (0-2); EOSINOPHILS ABSOLUTE AUTO 1.01 K/mm3 (0.00-0.68); EOSINOPHILS PERCENT AUTO 15 % (0-6); Hematocrit 33.7 % (33.0-51.0); Hemoglobin 10.9 g/dL (11.5-16.0); IMMATURE GRAN ABSOLUTE AUTO 0.01 K/mm3 (0.00-0.10); IMMATURE GRAN PERCENT AUTO 0 % (0-1); LYMPHOCYTES ABSOLUTE AUTO 1.76 K/mm3 (0.84-5.20); LYMPHOCYTES PERCENT AUTO 25 % (21-46); MONOCYTES ABSOLUTE AUTO 0.59 K/mm3 (0.16-1.47); MONOCYTES PERCENT AUTO 9 % (4-13); Mean Corpuscular HGB 29.6 pg (26.0-34.0); Mean Corpuscular HGB Conc 32.3 g/dL (31.5-36.5); Mean Corpuscular Volume 92 fL (80-100); Mean Platelet Volume 10.3 fL (9.1-12.4); NEUTROPHILS ABSOLUTE AUTO 3.55 K/mm3 (1.96-9.15); NEUTROPHILS PERCENT AUTO 51 % (41-73); Platelet Count 228 K/mm3 (150-400); RDW Coefficient Variation 15.6 % (11.7-14.2); RDW Standard Deviation 52.3 fL (35.1-46.3); Red Blood Cell Count 3.68 M/mm3 (3.80-5.20); White Blood Cell Count 6.96 K/mm3 (4.00-11.30)
[2024-08-12 20:39] LABS: Alanine Aminotransfer (ALT/SGP 45 U/L (12-78); Albumin/Globulin Ratio 1.2 (0.8-1.8); Alk Phos 98 U/L (50-136); Anion Gap 12 mmol/L (3-11); Aspartate Aminotrans (AST/SGOT 29 U/L (12-37); Bilirubin, Total 0.3 mg/dL (0.1-1.0); Blood Urea Nitrogen 26 mg/dL (8-24); Bun/Creatinine Ratio 18.6 (12.0-20.0); CHOL/HDL RATIO 1.9; CO2, Blood 26 mmol/L (21-32); Calcium, Blood 8.9 mg/dL (8.5-10.1); Chloride, Blood 108 mmol/L (98-108); Cholesterol 136 mg/dL (50-200); Globulin, Blood 3.2 g/dL (2.2-4.0); Glomerular Filtration Rate 40 (60-); Glucose, Blood 97 mg/dL (70-99); HDL Cholesterol 70 mg/dL (>39); LDL/HDL RATIO 0.6; Low Density Lipoprotein Chol 45 mg/dL (0-110); Potassium, Blood 4.3 mmol/L (3.5-5.5); Sodium, Blood 142 mmol/L (136-145); Total Protein, Blood 7.2 g/dL (6.4-8.2); Triglycerides 105 mg/dL (30-160); Very Low Density Lipoprot Chol 21 mg/dL (6-32)
== END ==
LOC: LAB SHORT 19:01 → LAB 19:01
PROVIDERS: Nurse Practitioner Family
DX: E78.5 Hyperlipidemia, unspecified (principal); E03.9 Hypothyroidism, unspecified; N18.30 Chronic kidney disease, stage 3 unspecified
CPT/HCPCS: 80053; 80061; 84443; 85025

== ENCOUNTER → 2025-04-30 | Outpatient (CLI) | payer OTHER ==
[2025-04-30 15:58] LABS: Microalbumin, Urine Quant. 6.91 mg/L (0.000-20.000); Protein, Urine Quantitative 12.1 mg/dL (0.0-11.9)
== END ==
LOC: LAB 12:32 → LAB SHORT 12:32
PROVIDERS: Internal Medicine Nephrology
DX: N18.2 Chronic kidney disease, stage 2 (mild) (principal); D63.1 Anemia in chronic kidney disease; N25.81 Secondary hyperparathyroidism of renal origin; E55.9 Vitamin D deficiency, unspecified; E78.00 Pure hypercholesterolemia, unspecified; R76.9 Abnormal immunological finding in serum, unspecified; R94.5 Abnormal results of liver function studies; R94.6 Abnormal results of thyroid function studies
CPT/HCPCS: 81050; 82043; 82570; 84156